=== PATIENT | male | born 1935 | race Caucasian/White ===

== ENCOUNTER 2019-04-08 11:52 | Day surgery (SDC) | payer MEDICARE, OTHER ==
[~2019-04-08] VITALS: Ht 182.9 cm; Wt 99.4 kg
[2019-04-08 13:03] VITALS: BP 158/96; PULSE 107; TEMP 98.2
[2019-04-08] MEDS ORDERED: LASIX 40MG TABL40 MG PO (13:10)
[2019-04-08] MEDS ORDERED: LASIX 80MG TABL80 MG PO (13:11)
[2019-04-08] MEDS ORDERED: VITAMIN D31000 I1 PO (13:12)
[2019-04-08] MEDS ORDERED: VITAMIN C500 MG PO (13:12)
[2019-04-08] MEDS ORDERED: TYLENOL 500MG500 MG PO (13:13)
[2019-04-08] MEDS ORDERED: PROAIR HFA0.09 MG/AC IH (13:21)
[2019-04-08] MEDS ORDERED: TUMS500 MG PO (13:21)
[2019-04-08] MEDS ORDERED: ASPIRIN E.C. 8181 MG PO (13:22)
[2019-04-08] MEDS ORDERED: CATAPRES 0.1MG0.1 MG PO (13:22)
[2019-04-08] MEDS ORDERED: COLESTID 1GM1 G PO (13:23)
[2019-04-08] MEDS ORDERED: UNISOM25 MG PO (13:28)
[2019-04-08] MEDS ORDERED: BENTYL 10MG10 MG/CAP PO (13:28)
[2019-04-08] MEDS ORDERED: NATURAL IRON65 MG PO (13:29)
[2019-04-08] MEDS ORDERED: RT ADVAIR 528 DISKUS IH (13:30)
[2019-04-08] MEDS ORDERED: NEURONTIN300 MG/CAP PO (13:30)
[2019-04-08] MEDS ORDERED: FOLIC ACID 11 MG/TA1 PO (13:30)
[2019-04-08] MEDS ORDERED: GAS-X ULTRA ST180 MG PO (13:31)
[2019-04-08] MEDS ORDERED: ANTIVERT 25MG25 MG PO (13:32)
[2019-04-08] MEDS ORDERED: LUTEIN20 M1 PO (13:32)
[2019-04-08] MEDS ORDERED: ZAROXOLYN5 MG PO (13:34)
[2019-04-08] MEDS ORDERED: LOPRESSOR 225 MG/TAB PO (13:48)
[2019-04-08] MEDS ORDERED: NITROSTAT0.4 MG/TAB SL (13:49)
[2019-04-08] MEDS ORDERED: PROTONIX 40MG T40 MG PO (13:53)
[2019-04-08] MEDS ORDERED: SERAX 15MG15 MG/CAP PO (13:53)
[2019-04-08] MEDS ORDERED: LOVENOX 100100 MG/ML SQ (13:53)
[2019-04-08] MEDS ORDERED: B-121000 MCG PO (13:55)
[2019-04-08] MEDS ORDERED: K-TAB20 PO (13:55)
[2019-04-08] MEDS ORDERED: RT SPIRIVA18 MCG IH (13:56)
[2019-04-08] MEDS ORDERED: ZOCOR 20MG20 MG PO (13:56)
[2019-04-08] MEDS ORDERED: COUMADIN 1MG1 MG/TAB PO (13:58)
[2019-04-08] MEDS ORDERED: AMBIEN 10MG10 MG PO (13:58)
[2019-04-08 14:56] VITALS: BP 157/87; PULSE 109
--- NOTE | 2019-04-08 14:59 | NUR ---
ALL MEDICATIONS GIVEN VORB WITH MD. SEE MERGE FOR ALL MEDICATION ADMIN TIMES. SEE MERGE FOR ALL RASS ASSESSMENTS DURING AND POST PROCEDURE.
[2019-04-08 15:43] VITALS: BP 149/89; PULSE 103
--- NOTE | 2019-04-08 15:43 | NUR ---
Back from lab tester by bed. Alert and oriented, family bedside. VSS at baseline. Right groin site CD&I and soft to palpation
[2019-04-08 16:00] VITALS: BP 144/88; PULSE 103
[2019-04-08 16:55] VITALS: BP 139/82; PULSE 82
--- NOTE | 2019-04-08 16:55 | NUR ---
Discharge instructions given. INT discontinued intact. Transferred to private car by cliff
== END 2019-04-08 17:10 | disposition home or self-care (01) ==
LOC: COL.CAR 11:52
PROVIDERS: Orthopaedic Surgery
DX: Z86.718 Personal history of other venous thrombosis and embolism (principal); I48.0 Paroxysmal atrial fibrillation; Z79.01 Long term (current) use of anticoagulants; Z87.891 Personal history of nicotine dependence
CPT/HCPCS: J1644; J2250; J3010; J7120; Q9967

== ENCOUNTER 2019-04-14 13:36 | Inpatient (IN) | payer MEDICARE, OTHER ==
[~2019-04-14] VITALS: Ht 182.9 cm; Wt 94.5 kg
[~2019-04-14 13:36] MED LIST: AMBIEN 10MG10 MG PO; ANTIVERT 25MG25 MG PO; ASPIRIN E.C. 8181 MG PO; B-121000 MCG PO; BENTYL 10MG10 MG/CAP PO; CATAPRES 0.1MG0.1 MG PO; COLESTID 1GM1 G PO; COUMADIN 3MG3 MG/TAB PO; FOLIC ACID 11 MG/TA1 PO; GAS-X ULTRA ST180 MG PO; K-TAB20 PO; LASIX 40MG TABL40 MG PO; LASIX 80MG TABL80 MG PO; LOPRESSOR 225 MG/TAB PO; LOVENOX 100100 MG/ML SQ; LUTEIN20 M1 PO; NATURAL IRON65 MG PO; NEURONTIN300 MG/CAP PO; NITROSTAT0.4 MG/TAB SL; PROAIR HFA0.09 MG/AC IH; PROTONIX 40MG T40 MG PO; RT ADVAIR 528 DISKUS IH; RT SPIRIVA18 MCG IH; SERAX 15MG15 MG/CAP PO; TUMS500 MG PO; TYLENOL 500MG500 MG PO; UNISOM25 MG PO; VITAMIN C500 MG PO; VITAMIN D31000 I1 PO; ZAROXOLYN5 MG PO; ZOCOR 20MG20 MG PO
[2019-04-15] VITALS (13 sets, daily range): BP systolic 97–131; BP diastolic 47–556; PULSE 78–100; TEMP 97.5–98
[2019-04-15 06:10] LABS: PROTHROMBIN TIME 11.5 SECONDS (9.7-12.8)
--- NOTE | 2019-04-15 11:26 | NUR ---
PT TO ROOM 330 PER BED WITH REPORT FROM JORGE ELECTROMECHANICAL ENGINEER @1100. DRESSING TO LEFT KNEE CDI WITH AQUACEL OVER INCISION. TEDS BILATERALLY. MESSAGE LEFT FOR SONNY DAVID RE: USE OF SCD WITH CURRENT DVT REPORTED BY PATIENT. JORGE COLEMAN PACU CALLED AND LEFT MESSAGE. PT IS A/O X3 DENIES PAIN. IV TO PUMP.
[2019-04-15] MEDS ORDERED: COUMADIN4 MG PO (12:40)
--- NOTE | 2019-04-15 14:53 | NUR ---
CAROLYNN met with the patient to discuss a discharge plan. The patient lives alone in [place]. The patient has a walker, cane, crutches and reports independence with ADLs. The patient's PCP is Dr. Awais Dias. The patient receives his medications from [facility] in [place]. The patient reports no difficulties obtaining his medications. The patient does not have advanced directives in the EMR. The patient plans to return home with home health services upon discharge. CAROLYNN provided a list of home health agencies from Medicare.gov that serve the [place] area. The patient chose [facility]. CAROLYNN faxed a referral to Tg at . CAROLYNN awaiting response from the agency. CAROLYNN will continue to follow.
--- NOTE | 2019-04-15 17:08 | NUR ---
PT OUT TO HALLS AMBULATING WITH THERAPY.
--- NOTE | 2019-04-15 18:56 | NUR ---
Report to Scar COLEMAN.
--- NOTE | 2019-04-15 20:30 | NUR ---
Pt. sitting up in chair at this time. Pt. is A&OX3, assessment complete. INT to lt. hand patent. Pt. up to ambulate at this time. Standby assist, gait belt and walker. Pt. tolerated well. Pt. reports pain at a 4 on pain scale at this time. Will give pain meds per orders. Dressing to lt. knee CDI. Pt. denies further needs, call light within reach.
[2019-04-16 00:36] VITALS: BP 123/70; PULSE 83; TEMP 97.6
[2019-04-16 04:00] VITALS: BP 122/70; PULSE 85; TEMP 97.8
--- NOTE | 2019-04-16 06:44 | NUR ---
awake resting in bed, bedside shift report received from JARED Abbott
[2019-04-16 06:48] LABS: HEMATOCRIT 28.7 % (42.0-52.0); HEMOGLOBIN 9.4 g/dl (13.5-18.0)
--- NOTE | 2019-04-16 07:50 | NUR ---
JOANN Mas in to see patient, will order breakfast soon
[2019-04-16 07:59] VITALS: BP 111/63; PULSE 74; TEMP 97.3
--- NOTE | 2019-04-16 08:30 | NUR ---
sitting up in bed eating breakfst, visiting with daughter and son-in-law, full assessment completed, see intervenitons for further info
--- NOTE | 2019-04-16 09:15 | NUR ---
physical therapy in to work with cesilia, ambulated out to nicholson and then back to room and in recliner
--- NOTE | 2019-04-16 10:25 | NUR ---
resting in chair, beginning to c/o pain to left knee, medicated with roxicodone 10mg po
--- NOTE | 2019-04-16 10:42 | NUR ---
CAROLYNN contacted Nisa (nurse) at with [facility]. She reports they can accept the patient for home health services. CAROLYNN faxed an update.
[2019-04-16 11:32] VITALS: BP 117/48; PULSE 69; TEMP 97.6
--- NOTE | 2019-04-16 11:53 | NUR ---
Initial visit; Patient thanked Orthotic/Prosthetic Practitioner for looking in on him and offering God's blessings.
--- NOTE | 2019-04-16 13:26 | NUR ---
out in nicholson with physical therapy for group exercises
--- NOTE | 2019-04-16 13:35 | NUR ---
back to room and into bed after therapy with left leg elevated, encouraged to order lunch and will do this now
--- NOTE | 2019-04-16 15:00 | NUR ---
awake visiting with family, denies needs
--- NOTE | 2019-04-16 15:44 | NUR ---
family will leave for a while and patient is ready to take a nap
[2019-04-16 16:58] VITALS: BP 119/71; PULSE 79; TEMP 98
--- NOTE | 2019-04-16 17:59 | NUR ---
sitting up in bed eating supper, denies needs
--- NOTE | 2019-04-16 18:30 | NUR ---
assisted up to bathroom and voided qs, then out and back to bed, c/o pain and medicated with roxicodone 10mg
--- NOTE | 2019-04-16 18:44 | NUR ---
bedside shift report given to JARED Abbott
[2019-04-16 20:00] VITALS: BP 119/46; PULSE 93; TEMP 98.1
--- NOTE | 2019-04-16 20:15 | NUR ---
Pt. sitting up in bed. Pt. is A&OX3, assessment complete. INT to rt. hand patent. Pt. denies pain at this time. Dressing to lt. knee CDI. Pt. denies further needs, call light within reach.
[2019-04-16] MEDS ORDERED: ROXICODONE 55 MG/TAB PO (22:26)
[2019-04-17] VITALS: BP 145/66; PULSE 101; TEMP 97.9
[2019-04-17 06:52] LABS: HEMATOCRIT 26.2 % (42.0-52.0); HEMOGLOBIN 8.7 g/dl (13.5-18.0)
[2019-04-17 07:52] VITALS: BP 119/75; PULSE 72; TEMP 98.2
[2019-04-17 08:12] VITALS: BP 112/57; PULSE 77; TEMP 98.1
--- NOTE | 2019-04-17 09:48 | NUR ---
The patient is to discharge home with home health today, 04/17. CAROLYNN faxed discharge orders to Nisa with [facility]. SW to fax additional updates at the end of the day. There are no additional needs at this time.
--- NOTE | 2019-04-17 10:01 | NUR ---
PT OUT TO LEVINE FOR THEARPY AND THEN RETURNED TO ROOM WITH SBA X1. PLAN ON DISCHARGE HOME WITH HOME HEALTH. PAIN WELL CONTROLLED WITH PO MEDS.
--- NOTE | 2019-04-17 11:33 | NUR ---
NOTIFIED SONNY DAVID OF THERAPY RECCOMENDATIONS. NURSING EVAL ADDED TO HOME HEALTH ORDERS.
--- NOTE | 2019-04-17 12:08 | NUR ---
OT WORKING WITH PATIENT AT THIS TIME.
[2019-04-17 12:52] VITALS: BP 121/69; PULSE 77; TEMP 97.6
--- NOTE | 2019-04-17 14:17 | NUR ---
DRESSING CHANGE COMPLETE, DISCHARGE INSTRUCTIONS REVIEWED WITH PATEINT AND FAMILY. PRESCRIPTIONS GIVEN. QUESTIONS ANSWERED. PT TAKEN BY WHEEL CHAIR TO FRONT.
== END 2019-04-17 14:19 | disposition home health service (06) | DRG 470 ==
LOC: JCC 04-15 05:02
PROVIDERS: Physician Assistant; ADMIT Orthopaedic Surgery
PROC: 0SRD0J9 Replacement of Left Knee Joint with Synthetic Substitute, Cemented, Open Approach (ICD-10-PCS; principal; 2019-04-15 09:45)
DX: M17.12 Unilateral primary osteoarthritis, left knee (principal); Z86.718 Personal history of other venous thrombosis and embolism; J43.9 Emphysema, unspecified; H40.9 Unspecified glaucoma; I10 Essential (primary) hypertension; Z87.891 Personal history of nicotine dependence; K21.9 Gastro-esophageal reflux disease without esophagitis; I25.10 Atherosclerotic heart disease of native coronary artery without angina pectoris; Z95.5 Presence of coronary angioplasty implant and graft
CPT/HCPCS: A9284; C1776; J0690; J1100; J1650; J2250; J2405; J2704; J7120; J7121

== ENCOUNTER 2019-04-18 16:05 | Inpatient (IN) | payer MEDICARE, OTHER ==
[2019-04-18] VITALS (80 sets, daily range): BP systolic 106–123; BP diastolic 51–61; PULSE 113–136; TEMP 98.2–100.5; O2SAT 92–100
[~2019-04-18] VITALS: Ht 185.4 cm; Wt 99.3 kg
[~2019-04-18 16:05] MED LIST changes: +COUMADIN4 MG PO; +ROXICODONE 55 MG/TAB PO
--- NOTE | 2019-04-18 19:15 | NUR ---
Patient arrived by EMS, transferred from [facility]. Upon assessment at this time, patient is alert, but unable to follow commands and does not respond appropriately to questions. Son at bedside upon arrival. Patient appears restless and is trying to pull at oxygen tubing and get up, son is attempting to keep him in the bed and from taking off oxygen. EMS placed patient on 1 L upon arrival, sats are in the 80's, oxygen bumped up to 4 L NC, sats now in low 90's. Fluids infusing through right arm ac, left forearm INT present as well. Patient's left lower extremity is swollen, reddened and warm to the touch, with significant bruising to ramires and knee. Surgical incision to left knee from LTK on 04/15 is open to air, wilbert intact and edges approximated. Dime size blister noted to knee along the incision line.
--- NOTE | 2019-04-18 20:30 | NUR ---
Received telephone report from JARED Ga. Patient care transfered.
[2019-04-18 20:38] LABS: BASO % 0.1 % (0.0-2.0); GRAN % 80.7 % (42.2-75.2); LYMPH % 10.3 % (20.0-51.0); MEAN CELL VOLUME 92 fl (80.0-100.0); MEAN CORPUSCULAR HGB CONC 33 g/dl (33.0-37.0); MEAN PLATELET VOLUME 8.3 fl (7.4-10.4); MONO # 0.8 (0.1-0.6); MONO % 8.2 % (1.7-9.3); PLATELET COUNT 153 K/mm3 (130-400); RED BLOOD COUNT 2.25 M/mm3 (4.20-5.60); REDCELL DISTRIBUTION WIDTH-CV 13.6 % (11.5-14.5)
--- NOTE | 2019-04-18 20:40 | NUR ---
Report given to JARED Nava in the ICU. Patient being transferred to ICU bed 8.
[2019-04-18 20:41] LABS: HEMATOCRIT 20.6 % (42.0-52.0); HEMOGLOBIN 6.8 g/dl (13.5-18.0); MEAN CORPUSCULAR HEMOGLOBIN 30 pg (27.0-31.0)
[2019-04-18 20:48] LABS: ALBUMIN 3.2 gm/dL (3.5-5.0); BILIRUBIN,TOTAL 1.6 mg/dL (0.0-1.0); CALCIUM 8.6 mg/dL (8.4-10.2); CREATININE, serum 1.63 (0.66-1.25); POTASSIUM 3.3 mmol/L (3.4-5.0); TOTAL PROTEIN 6.2 gm/dL (6.4-8.2)
--- NOTE | 2019-04-18 20:50 | NUR ---
Hgb critical at 6.8, Dr. Seo notified. States that she will order 1 unit PRBCs.
[2019-04-18 21:00] LABS: INR 1.3 (0.8-3.0); PROTHROMBIN TIME 15.2 SECONDS (9.7-12.8)
--- NOTE | 2019-04-18 21:02 | NUR ---
Patient arrived to the unit via stretcher. Patient alert but only oriented to himself. Moans audibly when touched or moved. Assisted to ICU bed and attached to all monitors. Left left is swollen, hot to touch and extensively bruised. Pedal pulses palpated and noted to be +1 on the left leg.
--- NOTE | 2019-04-18 21:30 | NUR ---
Left knee has extensive dark purple bruising from knee down to ankle. Leg is also swollen from the knee down. Stables are intact and a small dime sized blister has formed along side the wilbert over the kneecap. The leg is hot to touch and painful. Leg elevated on pillow. Left pedal pulses palpated and are a + 1. Will continue to monitor.
--- NOTE | 2019-04-18 21:35 | NUR ---
Patient becoming agitated; pulling at IV lines and monitoring equipment. Holt moaning and appears to be in pain. PRN morphine administered.
--- NOTE | 2019-04-18 21:45 | NUR ---
Hospitalist in unit and notified of continued agitation and restlessness. Sons at bedside to help prevent patient from pulling at lines and monitors. Also notfied about critical troponin result. Hostpitalist to see patient at bedside.
[2019-04-18 22:09] LABS: ARTERIAL BLD GAS O2 SATURATION 94.3 % (92-100); ARTERIAL BLD GAS TCO2 CT 28.6; ARTERIAL BLOOD GAS HCO3 27.5 meq/L (22-26); ARTERIAL BLOOD GAS PCO2 36.2 mmHg (35-45); ARTERIAL BLOOD GAS PO2 78.4 mmHg (80-100)
--- NOTE | 2019-04-18 22:25 | NUR ---
Patient very agitated pulling at IV lines and monitoring equipment and attempting to get up from bed. Two sons at bedside and holding patients hands to prevent from pulling out IV's. PRN ativan administered.
[2019-04-18 22:27] LABS: PARTIAL THROMBOPLASTIN TIME 27.5 SECONDS (26.0-37.0)
[2019-04-19] VITALS (550 sets, daily range): BP systolic 79–169; BP diastolic 38–88; PULSE 57–130; TEMP 97–99.5; O2SAT 89–100
--- NOTE | 2019-04-19 | NUR ---
Patient very agitated and restless; attempting to get out of bed and pulling at lines. Sagrario at bedside to assist with patient. Hospitalist called and received order to give 1mg Ativan now and IV haldol.
[2019-04-19 00:49] LABS: TROPONIN-I 3 HR POST INITIAL 0.241 ng/mL (0.000-0.034)
--- NOTE | 2019-04-19 01:48 | NUR ---
E-care nurse, Kyung notified about patient's continued agitation. Will review EMAR and get back to this nurse.
--- NOTE | 2019-04-19 02:36 | NUR ---
Jason resting in bed quietly. Sent sons to waiting room to get some rest. JARED hurst at bedside sitting one to one in case patient awakens and becomes agitated again.
--- NOTE | 2019-04-19 03:35 | NUR ---
Patient extremely agitated; pulling at lines and attempting to get up from bed. Two nurses assisting patient from pulling lines and harming himself. Received order from E-icu to give 50 mcg fentanyl X 3 doses. 3rd dose needed and just given will continue to monitor.
--- NOTE | 2019-04-19 03:57 | NUR ---
Updated e-care nurseKyung on patient's continued agitation. Awaiting further orders.
--- NOTE | 2019-04-19 05:02 | NUR ---
Patient appears to be in SR with PAC's and PVC's. Will obtain EKG to confirm.
--- NOTE | 2019-04-19 05:13 | NUR ---
EKG shows SR. Hospitalist notified.
--- NOTE | 2019-04-19 05:35 | NUR ---
Placed mitts on both hands due to agitation and pulling at IV lines and monitor equipment.
[2019-04-19 06:02] LABS: ALBUMIN 2.8 gm/dL (3.5-5.0); BILIRUBIN,TOTAL 1.8 mg/dL (0.0-1.0); CALCIUM 8.1 mg/dL (8.4-10.2); CREATININE, serum 1.29 (0.66-1.25); TOTAL PROTEIN 5.6 gm/dL (6.4-8.2)
[2019-04-19 06:10] LABS: POTASSIUM 2.8 mmol/L (3.4-5.0)
--- NOTE | 2019-04-19 06:16 | NUR ---
E-ICU nurse notified regarding critical potassium level. Also notified that pt is currently in SR. Has had several blood pressures in the 80's and HR 60's-70's. Have titrated cardizem down to 5mg/hr and have been titrating precedex down due to low BP's. Patient currently resting quietly in bed. Will continue to monitor.
--- NOTE | 2019-04-19 06:29 | NUR ---
Dr. Ward at bedside to see patient. Does not believe that knee appears to be infected. Bruising to be expected. If possible would like to keep leg elevated and straight with sara lau, but states that if pt will not tolerate than that is ok.
[2019-04-19 06:55] LABS: TROPONIN-I 0.229 ng/mL (0.000-0.035)
--- NOTE | 2019-04-19 07:15 | NUR ---
Bedside report received from JARED Nava. Assessment complete, patient resting, awakens easily, oriented to name only, does follow commands when asked to squeeze hands. Left lower extremity very bruised, reddened, and swollen, dime size intact blister/ dime size scab both noted on left knee. Left knee elevated on pillows and ice packs applied. Gtts infusing as charted. Bed alarm on for patient safety. Sons at bedside. Call light within reach.
[2019-04-19 07:29] LABS: EOS % 0.2 % (0-4.0); GRAN # 5.2 (1.4-6.5); GRAN % 78.1 % (42.2-75.2); LYMPH # 0.9 (1.2-3.4); LYMPH % 13.1 % (20.0-51.0); MEAN CELL VOLUME 91 fl (80.0-100.0); MEAN CORPUSCULAR HGB CONC 33 g/dl (33.0-37.0); MONO # 0.5 (0.1-0.6); MONO % 7.8 % (1.7-9.3); PLATELET COUNT 103 K/mm3 (130-400); RED BLOOD COUNT 2.19 M/mm3 (4.20-5.60); REDCELL DISTRIBUTION WIDTH-CV 14.5 % (11.5-14.5)
[2019-04-19 07:32] LABS: HEMOGLOBIN 6.6 g/dl (13.5-18.0); MEAN CORPUSCULAR HEMOGLOBIN 30 pg (27.0-31.0)
--- NOTE | 2019-04-19 07:51 | NUR ---
Notified Dr. Small of HGB of 6.6. Received order to transfuse one more unit PRBC's.
[2019-04-19 08:59] LABS: COLLECTION METHOD CATHETER
[2019-04-19 09:04] LABS: PH 7 (5-8); SQUAMOUS EPITHELIAL 0-2 /hpf; URINE APPEARANCE Clear; URINE BACTERIA None Seen /hpf; URINE BILIRUBIN Negative (NEGATIVE); URINE BLOOD 1+ (NEGATIVE); URINE COLOR Yellow; URINE GLUCOSE Negative (NEGATIVE); URINE KETONE Negative (NEGATIVE); URINE LEUKOCYTE ESTERASE Negative (NEGATIVE); URINE NITRATE Negative (NEGATIVE); URINE PROTEIN(semi-quant) Negative (NEGATIVE); URINE RBC 0-2 /hpf; URINE UROBILINOGEN Negative (NEGATIVE)
--- NOTE | 2019-04-19 09:18 | NUR ---
Dr. Portillo at bedside, turns heparin gtt off in preparation for central line placement.
--- NOTE | 2019-04-19 10:00 | NUR ---
Dr. Portillo and Yoselin,SUPERVISOR SAMPLE PREPARATION at bedside for intubation, time out performed. Patient intubated with 8.0 ETT, 22 at lip, CMV, TV 450, FIO2 50%, BR 20, Peep 5. Patient tolerated procedure well. Precedex gtt turned off at this time.
--- NOTE | 2019-04-19 10:44 | NUR ---
Dr. Aviles at bedside for central line placement.
--- NOTE | 2019-04-19 11:00 | NUR ---
Bekah Gaytan,COMPENSATOR WORKER at bedside for right radial arterial placement. Time out performed.
[2019-04-19 11:34] LABS: ARTERIAL BLD GAS O2 SATURATION 95.3 % (92-100); ARTERIAL BLD GAS TCO2 CT 27.8; ARTERIAL BLOOD GAS BASE EXCESS -1.6 (-2-2); ARTERIAL BLOOD GAS HCO3 25.9 meq/L (22-26); ARTERIAL BLOOD GAS PCO2 61.9 mmHg (35-45); ARTERIAL BLOOD GAS PO2 101.9 mmHg (80-100); ARTERIAL BLOOD GAS pH 7.24 (7.35-7.45)
--- NOTE | 2019-04-19 11:38 | NUR ---
train electronic technician in room for echo.
--- NOTE | 2019-04-19 12:30 | NUR ---
Patient lives at home in [place], [place] and plans to return home upon discharge and recovery if possible. Patient is moderately independent with daily living activities with assistance from his family members as needed (Daughter: Kymberly lives in [place] [phone] and Son: Dom lives in [place] [phone]) and has anticipated durable medical equipment anticipated needs. Patient's primary care physician is Dr. Awais Dias, his pharmacy is [facility] or [facility], and he does not have healthcare advance directives completed or on file at this time. Patient is retired from the [employer] , and no further needs at this time and social research assistant will follow as needed.
--- NOTE | 2019-04-19 14:00 | NUR ---
Insulin gtt started per sepsis protocol.
--- NOTE | 2019-04-19 14:33 | NUR ---
Patient taken to CT, with RT bagging patient.
--- NOTE | 2019-04-19 15:00 | NUR ---
Patient back from CT.
[2019-04-19 15:40] LABS: BASO % 0.1 % (0.0-2.0); GRAN # 12.6 (1.4-6.5); GRAN % 89.2 % (42.2-75.2); LYMPH # 0.6 (1.2-3.4); LYMPH % 4.4 % (20.0-51.0); MEAN CELL VOLUME 91 fl (80.0-100.0); MEAN CORPUSCULAR HGB CONC 33 g/dl (33.0-37.0); MEAN PLATELET VOLUME 8.5 fl (7.4-10.4); MONO # 0.8 (0.1-0.6); MONO % 5.5 % (1.7-9.3); PLATELET COUNT 193 K/mm3 (130-400); REDCELL DISTRIBUTION WIDTH-CV 14.3 % (11.5-14.5)
--- NOTE | 2019-04-19 16:00 | NUR ---
Heparin gtt restarted (per Dr. Portillo) This RN discussed with Shara,PhD to restart heparin gtt at last dose 1750 units/hr. Ice/elevation to left leg.
[2019-04-19 16:08] LABS: HEMATOCRIT 28.1 % (42.0-52.0); HEMOGLOBIN 9.3 g/dl (13.5-18.0); MEAN CORPUSCULAR HEMOGLOBIN 30 pg (27.0-31.0)
[2019-04-19 16:23] LABS: INR 1.3 (0.8-3.0); PROTHROMBIN TIME 14.2 SECONDS (9.7-12.8)
[2019-04-19 16:25] LABS: CALCIUM 8.4 mg/dL (8.4-10.2); CREATININE, serum 1.03 (0.66-1.25); MAGNESIUM 2.1 mg/dL (1.6-2.3); POTASSIUM 3.3 mmol/L (3.4-5.0)
[2019-04-19 17:45] LABS: ARTERIAL BLD GAS O2 SATURATION 98.4 % (92-100); ARTERIAL BLOOD GAS BASE EXCESS 0.1 (-2-2); ARTERIAL BLOOD GAS HCO3 24.7 meq/L (22-26); ARTERIAL BLOOD GAS PCO2 40.1 mmHg (35-45); ARTERIAL BLOOD GAS pH 7.41 (7.35-7.45)
[2019-04-19 17:46] LABS: ARTERIAL BLOOD GAS PO2 165.5 mmHg (80-100)
--- NOTE | 2019-04-19 19:30 | NUR ---
Patient opens eyes to verbal stimulation; able to sqeeze hands upon command. Became restless and agitated during assessment. Attempted to re-orient patient and stayed at bedside until able to rest calmly.
--- NOTE | 2019-04-19 19:35 | NUR ---
Bedside report given to JARED Nava. All lines, gtts and tubes verified.
[2019-04-19 22:28] LABS: HEMOGLOBIN 8.4 g/dl (13.5-18.0)
[2019-04-19 22:47] LABS: ARTERIAL BLD GAS O2 SATURATION 97.5 % (92-100); ARTERIAL BLD GAS TCO2 CT 25.7; ARTERIAL BLOOD GAS BASE EXCESS 0.1 (-2-2); ARTERIAL BLOOD GAS HCO3 24.5 meq/L (22-26); ARTERIAL BLOOD GAS PCO2 38.8 mmHg (35-45); ARTERIAL BLOOD GAS pH 7.42 (7.35-7.45)
[2019-04-19 22:48] LABS: ARTERIAL BLOOD GAS PO2 122.4 mmHg (80-100)
--- NOTE | 2019-04-19 23:58 | NUR ---
RT at bedside to lower 02 to 30% due to elevated 02 on ABG. No other concerns at this time.
[2019-04-20] VITALS (878 sets, daily range): BP systolic 102–177; BP diastolic 42–90; PULSE 57–108; TEMP 36.6; O2SAT 81–100
[2019-04-20 00:39] LABS: MAGNESIUM 2.2 mg/dL (1.6-2.3)
--- NOTE | 2019-04-20 01:09 | NUR ---
E-care notified about IV fluid rate of 150/hr. Latest BMP was over 4000. Pt also receiving multiple drips, potassium replacement and antibiotics concurrently. CVP 8-9.
--- NOTE | 2019-04-20 01:59 | NUR ---
Patient noted to be having runs of bigeminy beats lastsbetween 6-10 seconds. Appear to be increasing in frequency over approximately the last hour. last K+ was 3.3; currently receiving 60 meq replacement. Last Mag 2.2. Received order per Dr. Souza to discontinue the amiodarone drip and administer 2 gm magnesium .
--- NOTE | 2019-04-20 02:18 | NUR ---
IV fluids on hold X [address] Souza. Will resume at 75ml/hr.
[2019-04-20 04:48] LABS: BASO % 0.1 % (0.0-2.0); EOS % 0.2 % (0-4.0); GRAN # 9.2 (1.4-6.5); GRAN % 88.7 % (42.2-75.2); HEMATOCRIT 24.9 % (42.0-52.0); HEMOGLOBIN 8.2 g/dl (13.5-18.0); LYMPH # 0.7 (1.2-3.4); LYMPH % 6.3 % (20.0-51.0); MEAN CELL VOLUME 91 fl (80.0-100.0); MEAN CORPUSCULAR HEMOGLOBIN 30 pg (27.0-31.0); MEAN CORPUSCULAR HGB CONC 33 g/dl (33.0-37.0); MEAN PLATELET VOLUME 8.4 fl (7.4-10.4); MONO # 0.4 (0.1-0.6); MONO % 3.8 % (1.7-9.3); PLATELET COUNT 166 K/mm3 (130-400); RED BLOOD COUNT 2.74 M/mm3 (4.20-5.60); REDCELL DISTRIBUTION WIDTH-CV 15.1 % (11.5-14.5)
[2019-04-20 04:59] LABS: ALBUMIN 2.7 gm/dL (3.5-5.0); BILIRUBIN,TOTAL 1.8 mg/dL (0.0-1.0); CALCIUM 8.4 mg/dL (8.4-10.2); CREATININE, serum 0.92 (0.66-1.25); MAGNESIUM 2.5 mg/dL (1.6-2.3); POTASSIUM 3.4 mmol/L (3.4-5.0); TOTAL PROTEIN 5.6 gm/dL (6.4-8.2)
[2019-04-20 05:02] LABS: INR 1.3 (0.8-3.0); PROTHROMBIN TIME 14.7 SECONDS (9.7-12.8)
[2019-04-20 05:14] LABS: TROPONIN-I 0.128 ng/mL (0.000-0.035)
[2019-04-20 05:16] LABS: ARTERIAL BLD GAS O2 SATURATION 97.7 % (92-100); ARTERIAL BLD GAS TCO2 CT 24.6; ARTERIAL BLOOD GAS BASE EXCESS -0.6 (-2-2); ARTERIAL BLOOD GAS HCO3 23.5 meq/L (22-26); ARTERIAL BLOOD GAS PCO2 36.1 mmHg (35-45); ARTERIAL BLOOD GAS PO2 119.6 mmHg (80-100); ARTERIAL BLOOD GAS pH 7.43 (7.35-7.45)
--- NOTE | 2019-04-20 06:00 | NUR ---
Critical troponin called; did not notify as lab is trending down.
--- NOTE | 2019-04-20 06:05 | NUR ---
Sedation vacation stopped due to patient becoming very agitated; attempting to sit up and bending face towards hands and reaching up towards face. Nurse had to hold both arms down for several minutes after increasing sedation to prevent pt from extubating himself.
--- NOTE | 2019-04-20 06:23 | NUR ---
Resting calmly at this time after increasing sedation.
--- NOTE | 2019-04-20 08:00 | NUR ---
Dr Guzmán from xray notified RN of subclavian placement this AM which the tip was curved upward (see radiology notes), adjustment recommended. Dr Portillo at bedside to review and determine if PICC neccessary
--- NOTE | 2019-04-20 08:15 | NUR ---
Dr. Portillo here for rounds, asks this RN to call Dr. Aviles and review morning CXR results and see if he's ok with pulling TLC and put a PICC in. Dr. Aviles ok with PICC if TLC not in correct place. Dr. Portillo asks this RN to flush distal port with 20ml NS and recheck CXR at 1200. States ok to use TLC until recheck CXR.
--- NOTE | 2019-04-20 08:39 | NUR ---
PT ALERT AND FOLLOWING COMMANDS FOR DR. YAO. PT PLACED ON SMART CARE 09/[address] YAO. PT QUICKLY WEANED TO PS OF 0. NIF -45. PT EXTUBATED PER DR. YAO AT THIS TIME. PT PLACED ON 3L OM. NO STRIDOR NOTED. NO DISTRESS NOTED.
--- NOTE | 2019-04-20 09:54 | NUR ---
SW rounded with the team. Patient will stay in ICU for today, 04/20. Speech, physical, and occupational therapy were ordered. SW will continue to follow to assist with any discharge needs.
--- NOTE | 2019-04-20 12:00 | NUR ---
Pt extubated this AM, tolerating well on nasal cannula. Family at bedside. Orientation comes and goes, able to converse and answers yes or no questions best. Pt states "you sure ask some hard questions" when answer is unknown. Patient and family reminded of safety and fall risk
[2019-04-20 12:29] LABS: ARTERIAL BLD GAS O2 SATURATION 96.4 % (92-100); ARTERIAL BLD GAS TCO2 CT 25.6; ARTERIAL BLOOD GAS BASE EXCESS 1.2 (-2-2); ARTERIAL BLOOD GAS HCO3 24.6 meq/L (22-26); ARTERIAL BLOOD GAS PCO2 34.1 mmHg (35-45); ARTERIAL BLOOD GAS PO2 90.2 mmHg (80-100); ARTERIAL BLOOD GAS pH 7.48 (7.35-7.45)
--- NOTE | 2019-04-20 17:33 | NUR ---
Patient had a good day overall, pleasantly confused but redirectable. Family at bedside throughout the day. PICC line placed and central line in left chest DC'd due to location (see xray notes). Extubated this AM, tolerating O2 via NC well. Diet started on general with nectar thick liquids, pills with pudding. ACHS chems. Plan to continue monitoring and regaining strength/cognition
[2019-04-20 18:38] LABS: HEMATOCRIT 24.4 % (42.0-52.0); HEMOGLOBIN 8.1 g/dl (13.5-18.0)
--- NOTE | 2019-04-20 20:00 | NUR ---
Assessment complete; pt alert and oriented X2. Able to follow commands and will respond verbally to questions. However, pt is still slow to respond and was unable to give corrent answers about time and place. No agitation or restlessness. Resting calmly with son at bedside. Reports pain to the left lower leg but unable to describe or rate pain. Left leg has extensive bruising. Dark purple bruising around ramires to foot. Back of thigh also had deep reddish purple brusing. Redness around knee and anterior thigh was marked 04/19 with marker and redness had not progressed past this saurabh. There is still a dime size blister along the incision on the knee and a dime sized scab next to this blister. The incision is well approximated. Will continue to monitor.
[2019-04-21] VITALS (210 sets, daily range): BP systolic 125–141; BP diastolic 49–78; PULSE 85–98; TEMP 97.9–99; O2SAT 75–100
--- NOTE | 2019-04-21 01:30 | NUR ---
Bedbath provided; morphine administered prior to the bath. Patient rests comfortably when not moved, however with movement of the left leg patient is visibly in pain and moans audibly. Repositioned and leg elevated. Will continue to monitor.
--- NOTE | 2019-04-21 02:18 | NUR ---
Arterial line reading 150's to 170's. Cuff BP has been reading 120's-130's. Line has been zeroed multiple times. E-care notifed as parameters are set to call if greater than 150 systolic. However, this nurse is suspicious of accuracy of art line as it is very different from cuff readings which have been consistent. E-care nurse instructed to re-zero and do a "square wave test" and gently manipulate the radial site. Art line still reading 160's without a prominent diacrotic notch. E-care nurse also suspicious of art line. Instructed to go off the BP cuff pressure.
--- NOTE | 2019-04-21 04:00 | NUR ---
Patient is alert and partially oriented. Able to follow commands and make simple statements. Still has difficulty with more in depth conversations. Pleasant and cooperative with staff.
[2019-04-21 05:19] LABS: EOS % 0.4 % (0-4.0); GRAN # 4.7 (1.4-6.5); GRAN % 82.9 % (42.2-75.2); LYMPH # 0.6 (1.2-3.4); LYMPH % 10.8 % (20.0-51.0); MEAN CELL VOLUME 92 fl (80.0-100.0); MEAN CORPUSCULAR HGB CONC 33 g/dl (33.0-37.0); MEAN PLATELET VOLUME 8.4 fl (7.4-10.4); MONO # 0.3 (0.1-0.6); PLATELET COUNT 124 K/mm3 (130-400); RED BLOOD COUNT 2.51 M/mm3 (4.20-5.60); REDCELL DISTRIBUTION WIDTH-CV 14.8 % (11.5-14.5)
[2019-04-21 05:30] LABS: HEMOGLOBIN 7.5 g/dl (13.5-18.0); MEAN CORPUSCULAR HEMOGLOBIN 30 pg (27.0-31.0)
[2019-04-21 05:53] LABS: ARTERIAL BLD GAS O2 SATURATION 93.7 % (92-100); ARTERIAL BLOOD GAS BASE EXCESS 3.4 (-2-2); ARTERIAL BLOOD GAS HCO3 26.9 meq/L (22-26); ARTERIAL BLOOD GAS PCO2 35.8 mmHg (35-45); ARTERIAL BLOOD GAS PO2 68.3 mmHg (80-100); ARTERIAL BLOOD GAS pH 7.49 (7.35-7.45)
--- NOTE | 2019-04-21 05:54 | NUR ---
AM EKG showing A-fib, however, appears to this nurse to be SR with frequent PAC's. Called e-care to notify and requested to fax over EKG for recview.
[2019-04-21 06:01] LABS: CALCIUM 8.5 mg/dL (8.4-10.2); CREATININE, serum 0.92 (0.66-1.25); POTASSIUM 3.1 mmol/L (3.4-5.0)
[2019-04-21 06:35] LABS: PHOSPHOROUS 2.7 mg/dL (2.5-4.5)
--- NOTE | 2019-04-21 07:10 | NUR ---
Bedside report recieved from Brandy COLEMAN. Medications verified and reviewed. Patient awake in bed, denies needs at this time. Call light at side.
--- NOTE | 2019-04-21 09:11 | NUR ---
Initial visit; Patient and family thanked Corner Block Cutter for looking in on him and letting him know of the availability of Spiritual Care at our hospital. Patient was receptive to being added to Corner Block Cutter's prayer list.
--- NOTE | 2019-04-21 11:30 | NUR ---
Report called to Halle COLEMAN on surgical unit. Alicia with PT called to help with transfer to . Will be down to help
--- NOTE | 2019-04-21 11:50 | NUR ---
"Patient transferred to with 2|1 assist with PT. Transferred to room 325. Halle RN there to accept patient. PT 2:1 assist patient into bed."
--- NOTE | 2019-04-21 12:00 | NUR ---
arrived on unit per WC accompanied by JARED Cartagena and physical therapy, assisted out of WC and into bed, assessment completed, see shift assessment for further info, left knee is swollen and reddened and warm to touch, swelling has been outlined, incision is intact and appears to have 2cm blister to inside area of incision, entire left lower extremity with bruising and has edema to entire extremity, telemetry on and verified transmission, Heparin infusing at 18.5ml/hr and doxycycline infusing, both infusing to PICC in right upper extremity, c/o pain to right knee and was medicated prior to transfer from ICU,
--- NOTE | 2019-04-21 12:26 | NUR ---
hepxa 0.25, heparin rate increased 100ml/hr, this was verified by JARED Watkins
--- NOTE | 2019-04-21 12:58 | NUR ---
sitting up in bed eating lunch
--- NOTE | 2019-04-21 14:58 | NUR ---
awake and visits with family,
--- NOTE | 2019-04-21 15:45 | NUR ---
family called nurse and stated patient wanting to get out of bed, entered room and patient attempting to sit up on side of bed, assisted out of bed and ambulated few steps with walker to recliner, did well ambulating
--- NOTE | 2019-04-21 16:20 | NUR ---
remains up in chair looking at TV and visiting with family
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
--- NOTE | 2019-04-21 18:00 | NUR ---
back to room per bed after therapy and given urinal but was unable to void, supper has been ordered
--- NOTE | 2019-04-21 18:21 | NUR ---
sat on edge of bed and was able to void, had small amount bleeding around meatus after voiding
[2019-04-21 18:43] LABS: HEMATOCRIT 25.5 % (42.0-52.0); HEMOGLOBIN 8.3 g/dl (13.5-18.0)
--- NOTE | 2019-04-21 18:47 | NUR ---
HepXa 0.35 and no change in heparin dose, JARED Abbott verified, bedside shift report given to JARED Abbott
--- NOTE | 2019-04-21 21:30 | NUR ---
Pt. laying in bed with family at bedside. Pt. is alert and oriented at this time. Pt. does get confused at times but can be reoriented. Shift assessment complete. PICC to rt. upper arm patent. Heparin GTT running per orders at this time. Incision to lt. knee red, swollen. Reddness marked prior to shift start. Pt. denies pain needs at this time. Call light within reach.
[2019-04-22] VITALS: BP 125/63; PULSE 106; TEMP 98.7
--- NOTE | 2019-04-22 01:43 | NUR ---
HepXa complete, No change to heparin gtt rate at this time.
--- NOTE | 2019-04-22 03:37 | NUR ---
PT DOES NOT WANT TX AT THIS TIME WANTS TO SLEEP SPO2 85% PLACED ON 2 LPM NC PT DAUGHTER IN ROOM EXPLAINED AND INFORMED HER I WAS PLACING HIM ON O2 FOR NOC. INDICATED SHE UNDERSTOOD WILL CONTINUE TO MONITOR
[2019-04-22 04:00] VITALS: BP 141/86; PULSE 101; TEMP 98.1
[2019-04-22 06:08] LABS: MEAN CELL VOLUME 93 fl (80.0-100.0); MEAN CORPUSCULAR HGB CONC 33 g/dl (33.0-37.0); MEAN PLATELET VOLUME 8.5 fl (7.4-10.4); PLATELET COUNT 152 K/mm3 (130-400); RED BLOOD COUNT 2.58 M/mm3 (4.20-5.60); REDCELL DISTRIBUTION WIDTH-CV 14.9 % (11.5-14.5)
--- NOTE | 2019-04-22 06:14 | NUR ---
Pt. slept well through the night. Pt. remains A&OX3. PICC to rt. upper arm patent, Heparin gtt infusing per orders to purple line, Zosyn infusing to Red line at this time. Pt. reported pain this am. Gave pain med per orders. Reddness to rt. knee mildly improved. pt. denies further needs, call light within reach.
[2019-04-22 06:18] LABS: HEMATOCRIT 23.9 % (42.0-52.0); HEMOGLOBIN 7.8 g/dl (13.5-18.0); MEAN CORPUSCULAR HEMOGLOBIN 30 pg (27.0-31.0)
[2019-04-22 06:24] LABS: CALCIUM 8.7 mg/dL (8.4-10.2); CREATININE, serum 1.04 (0.66-1.25); PHOSPHOROUS 3.3 mg/dL (2.5-4.5); POTASSIUM 3.5 mmol/L (3.4-5.0)
--- NOTE | 2019-04-22 06:30 | NUR ---
bedside shift report received from JARED Abbott
[2019-04-22 08:09] VITALS: BP 137/72; PULSE 91; TEMP 97.6
--- NOTE | 2019-04-22 08:44 | NUR ---
up in chair eating breakfast, family at bedside
--- NOTE | 2019-04-22 09:00 | NUR ---
had breakfast and tolerated well, am meds given and takes without difficulty
--- NOTE | 2019-04-22 11:00 | NUR ---
physical therapy in to work with patient
--- NOTE | 2019-04-22 11:50 | NUR ---
occupational therapy in and working with patient, Dr Wilcox and care team in to see patient
[2019-04-22 12:16] VITALS: BP 142/76; PULSE 88; TEMP 97.9
--- NOTE | 2019-04-22 12:20 | NUR ---
c/o pain after working with therapies, medicated with hydrocodone 7.5mg 2 tabs
--- NOTE | 2019-04-22 13:57 | NUR ---
occupational therapy in to work with patient, ambulating to bathroom to try and have bowel movement
--- NOTE | 2019-04-22 14:17 | NUR ---
out of bathroom and into bed to finish working with physical therapy, was able to have medium soft bowel movmenet
--- NOTE | 2019-04-22 14:21 | NUR ---
SW met with the patient and patient's children to review discharge plan and to discuss therapies recommedation of post-acute rehab. The patient reports that he would be agreeable to rehab. SW presented and explained the patient choice form to the patient. The patient preferred 1) [facility] 2) [facility]. Patient choice form signed by the patient and he was provided a copy. CAROLYNN contacted and faxed a referral to both facilities. SW awaiting their screening. [facility]: #[phone] f#[phone] [facility]: #[phone] f#[phone]
--- NOTE | 2019-04-22 15:30 | NUR ---
remains resting in bed with family at bedside
[2019-04-22 15:58] VITALS: BP 125/68; PULSE 96; TEMP 98.1
--- NOTE | 2019-04-22 16:51 | NUR ---
sitting up in bed having supper,
--- NOTE | 2019-04-22 18:02 | NUR ---
in bed and appears to be sleeping, family at bedside
--- NOTE | 2019-04-22 18:49 | NUR ---
bedside shift report given to JARED Sigala
[2019-04-22 20:00] VITALS: BP 125/94; BP 138/70; PULSE 100; PULSE 68; TEMP 98; TEMP 98.2
--- NOTE | 2019-04-22 21:50 | NUR ---
Sitting at bedside. Son in room. Ambulated to restroom x1 assist with walker and gait belt. Assessment complete. Lungs clear. Murmur heard. Bowels active x4. Pulses present throughout. Left lower leg edema +3. Left lower leg has ecchymosis from above knee to lower leg. Incision to knee well approximated with dime size blister intact. Right lower leg +2 edema present. Bilateral arms ecchymosis present. Heparin infusing into PICC in right upper arm at 19.5 ml/hr without complications. Rating pain 4-5/10. Provided with PRN norco. Denies needs at this time. Call light in reach
[2019-04-23] VITALS: BP 125/98; PULSE 102; TEMP 98.2
--- NOTE | 2019-04-23 00:37 | NUR ---
Resting in bed with son at bedside. Denies needs. Call light in reach.
[2019-04-23 04:00] VITALS: BP 135/61; PULSE 79; TEMP 98.1
--- NOTE | 2019-04-23 04:36 | NUR ---
Up to restroom, returned to bed. Denies needs. Call light in reach.
[2019-04-23 06:32] LABS: MEAN CELL VOLUME 95 fl (80.0-100.0); MEAN CORPUSCULAR HGB CONC 31 g/dl (33.0-37.0); MEAN PLATELET VOLUME 8.6 fl (7.4-10.4); PLATELET COUNT 169 K/mm3 (130-400); RED BLOOD COUNT 2.55 M/mm3 (4.20-5.60); REDCELL DISTRIBUTION WIDTH-CV 14.9 % (11.5-14.5)
[2019-04-23 06:37] LABS: HEMATOCRIT 24.3 % (42.0-52.0); HEMOGLOBIN 7.5 g/dl (13.5-18.0); MEAN CORPUSCULAR HEMOGLOBIN 29 pg (27.0-31.0)
[2019-04-23 06:38] LABS: CREATININE, serum 1.1 (0.66-1.25); POTASSIUM 3.8 mmol/L (3.4-5.0)
[2019-04-23 06:47] LABS: ANISOCYTOSIS 1+; BAND 5 % (0-10); EOSINOPHIL 2 % (0-4); HYPOCHROMIA 1+; LYMPHOCYTE 22 % (20.0-51.0); METAMYELOCYTE 2 % (0-0); NEUTROPHILS 64 % (42.0-75.2); PLATELET ESTIMATE NORMAL (NORMAL)
--- NOTE | 2019-04-23 07:21 | NUR ---
Report given to JARED Newman. Patient resting in bed this AM. Required pain medication for left knee pain during night. Otherwise uneventful. Call light in reach.
[2019-04-23 07:40] VITALS: BP 136/59; PULSE 87; TEMP 97.9
--- NOTE | 2019-04-23 10:00 | NUR ---
Patient alert and oriented, answers questions appropriately. See assessment. LLE with 3+ edema and bruising noted. Incision to LLE with edges well approximated, blister noted, no other drainage noted. Pedal pulses palpable. ROM limited to LLE. No c/o at this time.
[2019-04-23 11:20] VITALS: BP 129/54; PULSE 98; TEMP 98.3
--- NOTE | 2019-04-23 16:30 | NUR ---
Darren, at [facility], reports that they can accept the patient. SW to inform the patient and patient's family and continue to follow.
[2019-04-23 16:36] VITALS: BP 124/52; PULSE 95; TEMP 98.7
[2019-04-23 20:00] VITALS: BP 140/70; PULSE 95; TEMP 98.3
--- NOTE | 2019-04-23 23:01 | NUR ---
Patient required assist x1 to ambulate to the restroom this evening. Noted to be continent. States he has some discomfort, but denies pain. Does not want any pain medication at this time, but educated to call if he needs some. Patient resting in bed with family at bedside. Will continue to monitor.
[2019-04-24] VITALS: BP 141/58; PULSE 99; TEMP 98.4
[2019-04-24 04:00] VITALS: BP 138/63; PULSE 93; TEMP 98.6
[2019-04-24 06:00] LABS: HEMATOCRIT 24.5 % (42.0-52.0); HEMOGLOBIN 7.7 g/dl (13.5-18.0)
[2019-04-24 06:04] LABS: INR 1.2 (0.8-3.0); PROTHROMBIN TIME 13.8 SECONDS (9.7-12.8)
--- NOTE | 2019-04-24 06:27 | NUR ---
Report given to JARED Bedolla.
--- NOTE | 2019-04-24 07:32 | NUR ---
Pt to PFT with RT. Tg DAVID in to see patient. Ok to discharge when medical clears.
--- NOTE | 2019-04-24 07:32 | NUR ---
Report from Anne COLEMAN.
[2019-04-24 08:14] VITALS: BP 1474/63; PULSE 92; TEMP 98
--- NOTE | 2019-04-24 09:45 | NUR ---
PT UP TO SIDE OF BED. ORTHO AND HOSPITALIST OK FOR DISCHARGE. TELFA PADS PLACED OVER INCISION UNDER TEDS. PT TOLERATING WELL. FAMILY AT BEDSIDE AND AWARE OF PLANS.
--- NOTE | 2019-04-24 10:11 | NUR ---
The patient is to discharge today, 04/24, to [facility] in [place]. Transportation was set for 1400, via [facility]. SW informed the patient, patient's family, and the patient's nurse. They were all in agreeance. SW also presented and explained the IM form to the patient. The patient verbalized understanding, signed, and he was provided a copy. No additional needs at this time.
[2019-04-24] MEDS ORDERED: MELAT3MGTAB PO (10:14)
[2019-04-24] MEDS ORDERED: FERROUS SU325 MG/TAB PO (10:15)
[2019-04-24] MEDS ORDERED: PACERONE400 MG PO (10:16)
[2019-04-24] MEDS ORDERED: SEROQUEL 2525 MG/TAB PO (10:19)
[2019-04-24 11:15] VITALS: BP 130/60; PULSE 102; TEMP 98.8
[2019-04-24 12:00] VITALS: BP 130/60; PULSE 102; TEMP 98.8
--- NOTE | 2019-04-24 12:43 | NUR ---
PICC LINE REMOVED BY [facility].
--- NOTE | 2019-04-24 14:13 | NUR ---
PT TRANSFERED TO [facility] AT THIS TIME.
--- NOTE | 2019-04-24 14:13 | NUR ---
REPORT CALLED TO [facility].
--- NOTE | 2019-04-24 14:32 | NUR ---
REPORT TO BONIFACIO COLEMAN.
== END 2019-04-24 14:30 | DRG 871 ==
LOC: SURG 16:05 → ICU 21:21 → SURG 04-21 11:50
PROVIDERS: Internal Medicine; Internal Medicine Pulmonary Disease; Physician Assistant; ADMIT Internal Medicine
PROC: 5A1945Z Respiratory Ventilation, 24-96 Consecutive Hours (ICD-10-PCS; 2019-04-19)
PROC: 02HV33Z Insertion of Infusion Device into Superior Vena Cava, Percutaneous Approach (ICD-10-PCS; 2019-04-19)
PROC: 02HV33Z Insertion of Infusion Device into Superior Vena Cava, Percutaneous Approach (ICD-10-PCS; principal; 2019-04-20)
PROC: 0BH17EZ Insertion of Endotracheal Airway into Trachea, Via Natural or Artificial Opening (ICD-10-PCS; 2019-04-20)
DX: A41.9 Sepsis, unspecified organism (principal); J96.01 Acute respiratory failure with hypoxia; R65.21 Severe sepsis with septic shock; G93.41 Metabolic encephalopathy; I82.402 Acute embolism and thrombosis of unspecified deep veins of left lower extremity; D62 Acute posthemorrhagic anemia; N17.9 Acute kidney failure, unspecified; D68.51 Activated protein C resistance; N39.0 Urinary tract infection, site not specified; L76.01 Intraoperative hemorrhage and hematoma of skin and subcutaneous tissue complicating a dermatologic procedure; E87.3 Alkalosis; J98.11 Atelectasis; I48.91 Unspecified atrial fibrillation; R31.9 Hematuria, unspecified; Y83.9 Surgical procedure, unspecified as the cause of abnormal reaction of the patient, or of later complication, without mention of misadventure at the time of the procedure; Y92.239 Unspecified place in hospital as the place of occurrence of the external cause; J44.9 Chronic obstructive pulmonary disease, unspecified; M25.562 Pain in left knee; G47.00 Insomnia, unspecified; E87.6 Hypokalemia; I95.9 Hypotension, unspecified; E78.5 Hyperlipidemia, unspecified; I10 Essential (primary) hypertension; K21.9 Gastro-esophageal reflux disease without esophagitis; F41.9 Anxiety disorder, unspecified; I25.10 Atherosclerotic heart disease of native coronary artery without angina pectoris; Z79.82 Long term (current) use of aspirin; Z79.01 Long term (current) use of anticoagulants; Z87.891 Personal history of nicotine dependence; Z95.5 Presence of coronary angioplasty implant and graft; Z96.652 Presence of left artificial knee joint
CPT/HCPCS: 99223-AI; 99233-AI; 99239; A9284; C1751; J0282; J1630; J1644; J1650; J1720; J1815; J2060; J2270; J2543; J2704; J3010; J3370; J3475; J3480; J7030; J7050; J7060; P9016; Q9967

== ENCOUNTER 2019-06-10 07:29 | Inpatient (IN) | payer MEDICARE, OTHER ==
[2019-06-10] VITALS (11 sets, daily range): BP systolic 104–141; BP diastolic 45–86; PULSE 16–87; TEMP 97.7–98.3
[~2019-06-10] VITALS: Ht 185.4 cm; Wt 93.6 kg
[~2019-06-10 07:29] MED LIST changes: +FERROUS SU325 MG/TAB PO; +MELAT3MGTAB PO; +PACERONE400 MG PO; +SEROQUEL 2525 MG/TAB PO
[2019-06-10] MEDS ORDERED: COUMADIN 2MG2 MG/TAB PO (09:06)
[2019-06-10] MEDS ORDERED: DOXYCYCLINE HY100 MG PO (09:07)
--- NOTE | 2019-06-10 13:02 | NUR ---
PT TO ROOM 348 PER CART WITH REPORT FROM JORGE TAKE UP OPERATOR. PT IS A/O X3 LUNGS DIMINISHED PT HAS HX OF COPD. VSS, BOWEL SOUNDS PRESENT. RIGHT KNEE WITH OCCLUSIVE JIMMY WRAP CDI. SCDS PLACED BILATERALLY WITH IV TO PUMP PER ORDERS. ORIENTED PT TO ROOM AND ROOM SERVICE.
[2019-06-10 14:22] LABS: HEMOGLOBIN 10.5 g/dl (13.5-18.0); MEAN CELL VOLUME 91 fl (80.0-100.0); MEAN CORPUSCULAR HEMOGLOBIN 29 pg (27.0-31.0); MEAN CORPUSCULAR HGB CONC 31 g/dl (33.0-37.0); MEAN PLATELET VOLUME 8.5 fl (7.4-10.4); PLATELET COUNT 195 K/mm3 (130-400); RED BLOOD COUNT 3.68 M/mm3 (4.20-5.60); REDCELL DISTRIBUTION WIDTH-CV 15.1 % (11.5-14.5)
[2019-06-10 14:25] LABS: HEMATOCRIT 33.4 % (42.0-52.0)
[2019-06-10 14:33] LABS: INR 1.4 (0.8-3.0); PROTHROMBIN TIME 16.3 SECONDS (9.7-12.8)
[2019-06-10 14:37] LABS: CREATININE, serum 1.38 (0.66-1.25)
[2019-06-10 14:38] LABS: BAND 6 % (0-10); EOSINOPHIL 2 % (0-4); LYMPHOCYTE 5 % (20.0-51.0); NEUTROPHILS 86 % (42.0-75.2); PLATELET ESTIMATE NORMAL (NORMAL)
--- NOTE | 2019-06-10 20:00 | NUR ---
Report received. Assumed care for night guard. Assessment complete. VS stable. Denies pain. Good circulation to extremity-cap refill <3- can wiggle toes and feels light touch. Noted to have drainage to kae/bulky dressing. Marked on kae-no dressing change per dr order. Fresh ice pack applied with elevation. Denies questions or concerns. Encouraged to call for increased pain/questions or concerns. Verbalizes understanding. Will monitor.
[2019-06-11 03:57] VITALS: BP 107/60; PULSE 64; TEMP 98.6
[2019-06-11 06:40] LABS: HEMATOCRIT 27.1 % (42.0-52.0); HEMOGLOBIN 8.7 g/dl (13.5-18.0)
[2019-06-11 06:41] LABS: INR 1.3 (0.8-3.0); PROTHROMBIN TIME 14.9 SECONDS (9.7-12.8)
--- NOTE | 2019-06-11 06:56 | NUR ---
Report given to JARED Bedolla
[2019-06-11 08:45] VITALS: BP 115/57; PULSE 68; TEMP 97.4
[2019-06-11] MEDS ORDERED: CORDARONE200 MG/TAB PO (12:08)
[2019-06-11 12:35] VITALS: BP 120/50; PULSE 69; TEMP 98
[2019-06-11 12:55] LABS: CREATININE, serum 1.27 (0.66-1.25)
--- NOTE | 2019-06-11 13:51 | NUR ---
SW met with patient to discuss discharge planning. Patient lives alone in [place]. He has children that live in [place], [facility], and [place]. His sister lives in [place] and is a support to him. Patients PCP is Dr Arun Ernandez and he obtains his medications through [facility] in [place]. Patient will be needing 6 weeks of IV antibiotics and would like to go to [facility] to obtain. CAROLYNN called [place] and talked to scheduling (ext [phone]). If order is obtained tomorrow it will need faxed with all clinical information to [phone]. If the order is not obtained until the weekend it will need to be faxed to the above number and [phone]. If patient starts IV antibiotics on the weekend he will need to come into the ER and if he starts during the week he will go to [facility]. CAROLYNN will follow up tomorrow to see if cultures have come back and IV antibiotics decided on.
[2019-06-11 16:55] VITALS: BP 109/54; PULSE 58; TEMP 97.9
--- NOTE | 2019-06-11 18:52 | NUR ---
REPORT TO ISAIAS COLEMAN.
[2019-06-11 20:28] VITALS: BP 113/57; PULSE 62; TEMP 97.7
[2019-06-12 00:05] VITALS: BP 110/55; PULSE 61; TEMP 97.7
[2019-06-12 03:54] VITALS: BP 121/58; PULSE 63; TEMP 97.6
--- NOTE | 2019-06-12 06:00 | NUR ---
vanco trough resulted at 0315 @ 21.48. order for vancomycin 1.5 grams at 0230. Call to Ken DAVID order to hold dose and have pharmacy review and dose next dose. Message sent to pharmacy from JAN.
[2019-06-12 06:50] LABS: HEMATOCRIT 26.9 % (42.0-52.0); HEMOGLOBIN 8.5 g/dl (13.5-18.0)
[2019-06-12 06:52] LABS: INR 1.3 (0.8-3.0); PROTHROMBIN TIME 15.8 SECONDS (9.7-12.8)
[2019-06-12 07:45] VITALS: BP 124/56; PULSE 67; TEMP 97.6
--- NOTE | 2019-06-12 08:00 | NUR ---
PATIENT IS A&O. VSS. AFEBRILE. DENIES PAIN IN LLE AT REST. PATIENT ASSISTED WITH 1 ASSIST AND WALKER TO BATHROOM AND HAD SM BM AND UP IN BEDSIDE CHAIR. LTK DRESSING IS CD&I WITH ACEWRAP. POSITIVE PEDAL PULSES TO BLE. PATIENT EAT/DRINK/VOIDING SUFFICIENT AMOUNTS. NO C/O N/V. RIGHT PICC TO INT. IV ABX ORDERED. I&D ON CASE. HEAD TO TOE ASSESSMENT WNL. BREAKFAST TRAY ORDERED. AM MEDS GIVEN. NO OTHER NEEDS. CALL LIGHT IN REACH.
--- NOTE | 2019-06-12 10:27 | NUR ---
Initial visit; Patient thanked Laminate Floor Installer for looking in on him and offering God's blessings.
[2019-06-12 11:42] VITALS: BP 117/60; PULSE 74; TEMP 97.6
--- NOTE | 2019-06-12 15:00 | NUR ---
PATIENT AND ASKING ABOUT DISCHARGE PLANS FOR TOMORROW. PATIENT PLANNING TO DO OUTPATIENT IV ABX IN [facility], WHO HAS ACCEPTED. CLOTH REELER WORKING ON DISCHARGE PLANNING.
[2019-06-12 16:23] VITALS: BP 118/57; PULSE 93; TEMP 98.4
[2019-06-12 20:20] VITALS: BP 104/60; PULSE 86; TEMP 98.2
--- NOTE | 2019-06-12 21:15 | NUR ---
Pt. laying in bed watching TV. Pt. is A&OX3, assessment complete. PICC to rt. upper arm patent. Dressing to lt. knee CDI. Pt. denies pain or other needs, call light within reach.
[2019-06-13 03:50] VITALS: BP 109/68; PULSE 80; TEMP 97.5
[2019-06-13 06:05] LABS: HEMATOCRIT 29.3 % (42.0-52.0); HEMOGLOBIN 9.4 g/dl (13.5-18.0)
[2019-06-13 06:10] LABS: INR 1.3 (0.8-3.0); PROTHROMBIN TIME 15.6 SECONDS (9.7-12.8)
[2019-06-13 07:47] VITALS: BP 121/53; PULSE 78; TEMP 98.4
[2019-06-13] MEDS ORDERED: VANCO 1 GR1 GM/250 M IV (10:14)
[2019-06-13] MEDS ORDERED: MAXIPIMEIVSOL IV (10:15)
--- NOTE | 2019-06-13 11:00 | NUR ---
Discharge planning discussed with patient. No questions verbalized. Explained how the outpatient antibiotics will work. Explained how often he will get them done every day. He needs reminders. His family is at bedside and said she will be helping him with getting to the appointments. No other changes at this time. Call light within reach.
[2019-06-13 11:02] VITALS: BP 110/75; PULSE 79; TEMP 97.3
--- NOTE | 2019-06-13 15:36 | NUR ---
CAROLYNN met with patient and sister about discharge today. CAROLYNN informed patient that he will need to go through [facility] for his weekend doses of IV antibiotics. SW presented IM to patient and sister. Patient's sister signed and patient was provided a copy. CAROLYNN faxed discharge orders to [facility] and informed them of patient's discharge today.
[2019-06-13 15:39] VITALS: BP 113/50; PULSE 77; TEMP 97.9
[2019-06-13] MEDS ORDERED: NORCO 325 MG-7.1 TAB PO (17:04)
--- NOTE | 2019-06-13 18:00 | NUR ---
Patient is discharging home. He is discharging with his PICC line in place. Explained that he needs to be there at 0600 Saturday morning for outpatient antibiotics. Printed of the PICC discontinue sheet and explained he needs to give it to the nurse along with the scripts for antibiotics. Explained when his follow up is with Dr Huddleston. Discussed that he has a prescription for norco to get filled. He stated he got one filled with his last surgery but did not take it. Explained to call Saturday to make a one week follow up appointment with Dr Ellis. Wrote in on his discharge instructions and highlighted these orders on the paperwork. Explained his primary will be in charge of his PT/INR and he needs to follow up with him for the coumadin dosing. Patient verbalized understanding. Copies of discharge instructions sent with patient. All belongings packed up and sent with patient. Patient walked out via wheel chair by Vera RICKS.
== END 2019-06-13 18:00 | disposition home or self-care (01) | DRG 560 ==
LOC: SDCO 07:29 → SURG 07:30 → SDCO 12:30 → SURG 06-13 18:00
PROVIDERS: Internal Medicine Infectious Disease; Physician Assistant; Registered Nurse; ADMIT Orthopaedic Surgery
PROC: 02HV33Z Insertion of Infusion Device into Superior Vena Cava, Percutaneous Approach (ICD-10-PCS; principal; 2019-06-11)
DX: T84.54XA Infection and inflammatory reaction due to internal left knee prosthesis, initial encounter (principal); D68.2 Hereditary deficiency of other clotting factors; H40.9 Unspecified glaucoma; I10 Essential (primary) hypertension; Y83.8 Other surgical procedures as the cause of abnormal reaction of the patient, or of later complication, without mention of misadventure at the time of the procedure; I25.10 Atherosclerotic heart disease of native coronary artery without angina pectoris; I25.2 Old myocardial infarction; E78.5 Hyperlipidemia, unspecified; K21.9 Gastro-esophageal reflux disease without esophagitis; F41.9 Anxiety disorder, unspecified; Z79.01 Long term (current) use of anticoagulants; Z79.82 Long term (current) use of aspirin; Z86.718 Personal history of other venous thrombosis and embolism; Z88.1 Allergy status to other antibiotic agents
CPT/HCPCS: OP; A9284; C1751; C1776; J0690; J0692; J1100; J2405; J2704; J3010; J3370; J7030; J7050; J7121